=== PATIENT | male | born 1990 | race Caucasian/White ===

== ENCOUNTER 2016-04-06 21:53 | Emergency (ER) | payer OTHER ==
[2016-04-06] MEDS ORDERED: LIDOCAINE 1% MDV 20 ML ONE (22:39)
[2016-04-06] MEDS ORDERED: ACETAMINOPHEN 325 MG TAB ONE (23:33)
[2016-04-07] MEDS ORDERED: ACETAMINOPHEN 325 MG TAB ONE (00:03)
[2016-04-07] MEDS ORDERED: KETOROLAC 60 MG/2 ML VIAL IM ONE (00:04)
== END 2016-04-07 00:19 | disposition home or self-care (01) ==
LOC: ER 21:53
DX: S61.011A Laceration without foreign body of right thumb without damage to nail, initial encounter (principal); W26.0XXA Contact with knife, initial encounter; Y92.009 Unspecified place in unspecified non-institutional (private) residence as the place of occurrence of the external cause
CPT/HCPCS: 82947; 96372